=== PATIENT | female | born 1950 | race Caucasian/White ===

== ENCOUNTER 2017-06-05 07:25 | Day surgery (SDC) | payer MEDICARE ==
[~2017-06-05] VITALS: Ht 154.9 cm; Wt 59.0 kg
[~2017-06-05 07:25] MED LIST: ASPIRIN 81 LOW81 MG PO; CLONAZEPAM1 M1 PO; FLURAZEPAM HCL30 MG PO; MEDDOSEPAK PO; VITAMIN C1000 MG PO; WELLBUTRIN100 M2 PO
[2017-06-05 11:43] VITALS: BP 126/86
== END 2017-06-05 09:05 | disposition home or self-care (01) ==
LOC: ENDO 07:25
PROVIDERS: ATTEND Surgery
PROC: 0DJD8ZZ Inspection of Lower Intestinal Tract, Via Natural or Artificial Opening Endoscopic (ICD-10-PCS; principal; 2017-06-05)
DX: Z12.11 Encounter for screening for malignant neoplasm of colon (principal); M19.90 Unspecified osteoarthritis, unspecified site

== ENCOUNTER 2017-09-14 08:41 | Emergency (ER) | payer MEDICARE, OTHER ==
[~2017-09-14] VITALS: Ht 154.9 cm; Wt 66.0 kg
[2017-09-14] MEDS ORDERED: BACTRIM DS1 TAB PO (08:57)
[2017-09-14] MEDS ORDERED: CEPHALEXIN500 M1 PO (08:57)
[2017-09-14 09:10] VITALS: BP 120/76
== END 2017-09-14 09:10 | disposition home or self-care (01) ==
LOC: ED 08:41
DX: L03.113 Cellulitis of right upper limb (principal); T63.421A Toxic effect of venom of ants, accidental (unintentional), initial encounter

== ENCOUNTER → 2018-06-17 | Outpatient (REF) | payer MEDICARE, MEDICAID ==
[~2018-06-17] MED LIST changes: +BACTRIM DS1 TAB PO; +BACTROBAN TOP; +CEPHALEXIN500 M1 PO; +KEFLEX500 M1 PO
[2018-06-17 13:12] LABS: HEMATOCRIT 44.6 % (37.0-47.0); HEMOGLOBIN 14.4 g/dl (12.0-16.0); MEAN CELL VOLUME 92.7 fL CALC (80.0-100.0); MEAN CORPUSCULAR HGB 29.9 pG CALC (26.0-32.0); MEAN CORPUSCULAR HGB CONC 32.3 g/L CALC (32.0-36.0); RED BLOOD COUNT 4.81 mill/uL (4.20-5.60); RED CELL DISTRI WIDTH 13.3 % (11.5-15.5)
[2018-06-17 13:26] LABS: ALBUMIN 4.3 g/dL (3.2-5.0); ALKALINE PHOSPHATASE 53 u/l (38-126); ANION GAP 12 (6-22 (CALC)); BILIRUBIN, TOTAL 0.5 mg/dL (0.0-1.4); BUN 17 mg/dL (8-23); BUN/CREATININE RATIO 22 (12-20 (CALC)); CARBON DIOXIDE 28 mmol/l (22-30); CHLORIDE 106 mmol/l (95-108); CREATININE 0.8 mg/dL (0.5-1.0); GFR > 60 ML/MIN (>=60 (CALC)); GFR FOR AFR.AMER. > 60 ML/MIN (>=60 (CALC)); POTASSIUM 3.9 mmol/l (3.5-5.1); SGOT/AST 27 u/l (9-36); SODIUM 142 mmol/l (137-146)
[2018-06-17 13:55] LABS: TSH, 3RD GENERATION 1.71 uIU/mL (0.47 - 4.68)
== END | disposition home or self-care (01) ==
LOC: LAB 12:41
PROVIDERS: ATTEND Nurse Practitioner Family
DX: E55.9 Vitamin D deficiency, unspecified (principal); I10 Essential (primary) hypertension; M54.5 Low back pain; M51.36 Other intervertebral disc degeneration, lumbar region

== ENCOUNTER 2018-06-27 14:51 | Emergency (ER) | payer MEDICARE, MEDICAID ==
[~2018-06-27] VITALS: Ht 154.9 cm; Wt 59.1 kg
[~2018-06-27 14:51] MED LIST changes: -BACTROBAN TOP; -KEFLEX500 M1 PO
[2018-06-27] MEDS ORDERED: BACTROBAN TOP (15:14)
[2018-06-27] MEDS ORDERED: KEFLEX500 M1 PO (15:14)
[2018-06-27 15:20] VITALS: BP 127/74
== END 2018-06-27 15:20 | disposition home or self-care (01) ==
LOC: ED 14:51
DX: S51.831A Puncture wound without foreign body of right forearm, initial encounter (principal); I10 Essential (primary) hypertension; W45.0XXA Nail entering through skin, initial encounter; Y92.009 Unspecified place in unspecified non-institutional (private) residence as the place of occurrence of the external cause

== ENCOUNTER 2019-02-04 20:22 | Emergency (ER) | payer MEDICARE, MEDICAID ==
[~2019-02-04] VITALS: Ht 154.9 cm; Wt 59.0 kg
[~2019-02-04 20:22] MED LIST changes: +BACTROBAN TOP; +KEFLEX500 M1 PO
[2019-02-04] MEDS ORDERED: BUPROPION HCL75 MG PO (20:52)
[2019-02-04] MEDS ORDERED: TOPROL XL25 MG PO (20:52)
[2019-02-04] MEDS ORDERED: NAPROXEN500 MG PO (20:53)
[2019-02-04] MEDS ORDERED: ASPIRIN 8181 MG PO (20:55)
[2019-02-04] MEDS ORDERED: PREDNISONE50 MG PO (21:01)
[2019-02-04 21:05] VITALS: BP 147/95
== END 2019-02-04 21:05 | disposition home or self-care (01) ==
LOC: ED 20:22
DX: S40.862A Insect bite (nonvenomous) of left upper arm, initial encounter (principal); T78.49XA Other allergy, initial encounter; W57.XXXA Bitten or stung by nonvenomous insect and other nonvenomous arthropods, initial encounter; R21 Rash and other nonspecific skin eruption; I10 Essential (primary) hypertension

== ENCOUNTER 2022-07-08 11:35 | Emergency (ER) | payer MEDICARE, MEDICAID ==
[~2022-07-08] VITALS: Ht 154.9 cm; Wt 50.0 kg
[~2022-07-08 11:35] MED LIST changes: +ASPIRIN 8181 MG PO; +BUPROPION HCL75 MG PO; +NAPROXEN500 MG PO; +PREDNISONE50 MG PO; +TOPROL XL25 MG PO
[2022-07-08 12:03] VITALS: BP 181/99
[2022-07-08 12:23] LABS: EOS% 2.6 % (0-8); HEMATOCRIT 45.4 % (37.0-47.0); HEMOGLOBIN 14.4 g/dl (12.0-16.0); IMMATURE GRANULOCYTES 0.1 % (0.0-5.0); MEAN CELL VOLUME 90.1 fL CALC (80.0-100.0); MEAN CORPUSCULAR HGB 28.6 pG CALC (26.0-32.0); MEAN CORPUSCULAR HGB CONC 31.7 g/dL CAL (32.0-36.0); MONO% 8.6 % (2-13); NEUT# 5.05 thou/uL (2.00-7.15); NEUT% 68.7 % (42-76); RED BLOOD COUNT 5.04 mill/uL (4.20-5.60); RED CELL DISTRI WIDTH 13.2 % (11.5-15.5)
[2022-07-08 12:41] LABS: ALKALINE PHOSPHATASE 75 u/l (38-126); ANION GAP 9 (6-22 (CALC)); BUN 18 mg/dL (8-23); BUN/CREATININE RATIO 23 (12-20 (CALC)); CARBON DIOXIDE 28 mmol/l (22-30); CHLORIDE 106 mmol/l (95-108); CREATININE 0.8 mg/dL (0.5-1.0); GFR FOR AFR.AMER. > 60 ML/MIN (>=60 (CALC)); GFR OTHER RACES > 60 ML/MIN (>=60 (CALC)); SGOT/AST 34 u/l (9-36); SODIUM 139 mmol/l (137-146); TOTAL PROTEIN 6.6 g/dL (6.3-8.2)
[2022-07-08 12:48] LABS: BILIRUBIN, TOTAL 0.1 mg/dL (0.02-1.3)
[2022-07-08 14:08] LABS: URINE BILIRUBIN - DIPSTICK NEGATIVE (NEGATIVE); URINE BLOOD DIPSTICK NEGATIVE (NEGATIVE); URINE COLOR YELLOW; URINE GLUCOSE - DIPSTICK NEGATIVE (NEGATIVE); URINE KETONE NEGATIVE (NEGATIVE); URINE LEUK ESTERASE NEGATIVE (NEGATIVE); URINE PROTEIN - DIPSTICK NEGATIVE (NEG-TRACE); URINE SPECIFIC GRAVITY 1.015; URINE UROBILINOGEN - DIPSTICK 0.2 E.U./dL (0.2)
[2022-07-08 14:12] LABS: URINE NITRITE - DIPSTICK NEGATIVE (Negative)
[2022-07-08 14:29] VITALS: BP 142/80
== END 2022-07-08 14:31 | disposition home or self-care (01) ==
LOC: ED 11:35
PROVIDERS: Family Medicine
DX: E86.0 Dehydration (principal); I10 Essential (primary) hypertension; F32.9 Major depressive disorder, single episode, unspecified

== ENCOUNTER 2023-09-25 04:20 | Emergency (ER) | payer MEDICARE, MEDICAID ==
[~2023-09-25] VITALS: Ht 154.9 cm; Wt 52.0 kg
[~2023-09-25 04:20] MED LIST changes: +MECLIZINE 2525 MG PO; +TOPROL XL25 M1 PO
[2023-09-25 04:27] VITALS: BP 113/58
[2023-09-25 04:30] VITALS: BP 129/69
[2023-09-25] MEDS ORDERED: DiphenhydrAMINE HCL 25 MG CPLT PO ONE (04:45)
[2023-09-25] MEDS ORDERED: predniSONE 20 MG/TAB PO ONE (04:45)
[2023-09-25 05:04] VITALS: BP 129/69
== END 2023-09-25 05:04 | disposition home or self-care (01) ==
LOC: ED 04:20
DX: S50.861A Insect bite (nonvenomous) of right forearm, initial encounter (principal); I10 Essential (primary) hypertension; F32.A Depression, unspecified; W57.XXXA Bitten or stung by nonvenomous insect and other nonvenomous arthropods, initial encounter; Y93.H9 Activity, other involving exterior property and land maintenance, building and construction; Y92.007 Garden or yard of unspecified non-institutional (private) residence as the place of occurrence of the external cause